=== PATIENT | male | born 1990 | race Caucasian/White ===

== ENCOUNTER 2016-12-26 04:37 | Emergency (ER) | payer MEDICAID ==
[~2016-12-26] VITALS: Ht 172.7 cm; Wt 75.0 kg
[2016-12-26] MEDS ORDERED: FAMOTIDINE 20MG TABLET PO ONE (06:30)
[2016-12-26] MEDS ORDERED: ACETAMINOPHEN 325MG TABLET PO ONE (06:30)
[2016-12-26 06:47] LABS: BASOPHILS % 0.2 % (0.0-2.0); EOSINOPHILS % 1.1 % (0.0-5.0); HEMATOCRIT. 43.2 % (42.0-52.0); HEMOGLOBIN. 14.6 g/dL (14.0-18.0); MEAN CORPUSCULAR HEMOGLOBIN 30.6 pg (28.0-32.0); MEAN CORPUSCULAR HGB CONC 33.9 g/dL (31.0-37.0); MEAN CORPUSCULAR VOLUME 90.2 fL (80.0-94.0); MEAN PLATELET VOLUME 6.9 fl (7.4-10.4); MONOCYTES % 10.3 % (2.0-8.0); NEUTROPHILS % 64.4 % (40.0-76.0); PLATELET 241 x1000/uL (130-400); RED BLOOD CELL COUNT 4.78 mill/uL (4.7-6.1); RED CELL DISTRIBUTION WIDTH 13.9 % (11.6-14.6); WHITE BLOOD COUNT 8.5 x1000/uL (4.5-11.0)
[2016-12-26 07:01] LABS: ALANINE AMINOTRANSFERASE 36 IU/L (13-61); ALBUMIN 3.7 g/dL (3.4-5.0); ANION GAP 13; CALCIUM 8.3 mg/dL (8.5-10.1); CARBON DIOXIDE 27 mEq/L (21-32); CHLORIDE 105 mEq/L (98-107); INDEX HEMOLYSI 1 (1-3); INDEX ICTERIC 1 (1-4); INDEX LIPEMIC 1 (1-3); LIPASE 113 IU/L (73-393); UREA NITROGEN BLOOD 20 mg/dL (7-21); eGFR > 60 mL/min (>60)
[2016-12-26 07:05] LABS: CLARITY URINE CLEAR (CLEAR); COLOR URINE YELLOW (YELLOW); GLUCOSE URINE NEGATIVE (NEGATIVE); KETONES URINE NEGATIVE (NEGATIVE); LEUKOCYTE ESTERASE URINE NEGATIVE (NEGATIVE); NITRITE URINE NEGATIVE (NEGATIVE); OCCULT BLOOD URINE NEGATIVE (NEGATIVE); PH URINE 5.5 (4.5-8.0); PROTEIN URINE NEGATIVE (NEGATIVE); SPECIFIC GRAVITY URINE 1.028 (1.005-1.030); UROBILINOGEN URINE 0.2 E.U./dL (0.2-1.0)
[2016-12-26 07:15] LABS: *AMPHETAMINES SCREEN URINE PRESUMTIVE POSITIVE (NEGATIVE); *BARBITURATES SCREEN URINE NEGATIVE (NEGATIVE); *BENZODIAZEPINES SCREEN URINE NEGATIVE (NEGATIVE); *COCAINE SCREEN URINE NEGATIVE (NEGATIVE); CANNABINOID URINE SCREEN PRESUMTIVE POSITIVE (NEGATIVE); ECSTASY MDMA SCREEN URINE NEGATIVE (NEGATIVE); METHADONE URINE SCREEN NEGATIVE (NEGATIVE); OPIATES URINE SCREEN NEGATIVE (NEGATIVE); PHENCYCLIDINE URINE SCREEN NEGATIVE (NEGATIVE)
[2016-12-26 08:25] VITALS: BP 111/72
== END 2016-12-26 08:27 | disposition home or self-care (01) ==
LOC: ER 04:42
DX: R10.13 Epigastric pain (principal); F12.10 Cannabis abuse, uncomplicated; F15.10 Other stimulant abuse, uncomplicated
CPT/HCPCS: 36415; 76705; 80053; 80305; 81003; 83690; 85025; 99285

== ENCOUNTER 2016-12-26 12:10 | Emergency (ER) | payer MEDICAID ==
[~2016-12-26] VITALS: Ht 185.4 cm; Wt 95.0 kg
[2016-12-26] MEDS ORDERED: ONDANSETRON HCL 4MG/2ML VIAL IV STA (12:53)
[2016-12-26] MEDS ORDERED: SODIUM CHLORIDE 0.9% 1,000 ML IV ONE (12:53)
[2016-12-26] MEDS ORDERED: KETOROLAC 30MG/ML VIAL IV STA (12:53)
[2016-12-26] MEDS ORDERED: FAMOTIDINE 20MG/2ML VIAL IV ONE (13:00)
[2016-12-26 13:19] VITALS: BP 143/89
== END 2016-12-26 15:38 | disposition home or self-care (01) ==
LOC: ER 12:25
DX: K29.70 Gastritis, unspecified, without bleeding (principal); F41.9 Anxiety disorder, unspecified; F12.10 Cannabis abuse, uncomplicated; F15.10 Other stimulant abuse, uncomplicated; F17.200 Nicotine dependence, unspecified, uncomplicated
CPT/HCPCS: 96361; 96374; 96375; 99284; J1885; J2405; J3490; J7030; Z7610

== ENCOUNTER 2022-06-29 11:20 | Emergency (ER) | payer MEDICAID ==
[~2022-06-29] VITALS: Ht 177.8 cm; Wt 77.0 kg
[2022-06-29 11:55] VITALS: BP 128/78
== END 2022-06-29 13:30 | disposition left against medical advice (07) ==
LOC: ER 11:33
DX: Z53.21 Procedure and treatment not carried out due to patient leaving prior to being seen by health care provider (principal)